=== PATIENT | male | born 1980 | race Caucasian/White ===

== ENCOUNTER 2016-03-18 13:31 | Emergency (ER) | payer SELFPAY ==
--- NOTE | 2016-03-18 15:23 | ER Document Report ---
Addendum entered and electronically signed by GABRIEL POSADA FNP 15:25: Discharge - Discharge Clinical Impression: Dog bite Disposition: HOME, SELF-CARE Additional Instructions: Dog bite. Soak affected area 4-5 times a day in warm water. Less follow-up with PMD for recheck in 24 hours. Return to the emergency room for any change or same condition. Prescriptions: Tramadol HCl [Ultram 50 mg Tablet] 50 mg PO Q6HP PRN #40 tablet PRN Reason: Amox Tr/Potassium Clavulanate [Augmentin 875-125 Tablet] 1 tab PO BID 10 Days Forms: Smoking Cessation Education Original Note: ED Animal Bite - General Chief Complaint: Dog Bite Stated Complaint: POSSIBLE DOG BITE Mode of Arrival: Ambulatory Information source: Patient TRAVEL OUTSIDE OF THE [place] IN LAST 30 DAYS: No - Related Data Allergies/Adverse Reactions: No Known Allergies Allergy (Verified 03/18/16 13:49) Past Medical History - General Information source: Patient - Social History Smoking Status: Current Every Day Smoker Cigarette use (# per day): Yes Lives with: Alone Family History: Arthritis, CAD, CVA, Hyperlipidemia, Hypertension, Malignancy Patient has suicidal ideation: No Patient has homicidal ideation: No Pulmonary Medical History: Reports: Hx Pneumonia Musculoskeltal Medical History: Reports Hx Musculoskeletal Deformity, Reports Hx Musculoskeletal Trauma - chronic back pain, herniated disc Traumatic Medical History: Reports: Hx Fractures - right arm 4 times - Immunizations Hx Diphtheria, Pertussis, Tetanus Vaccination: Yes - 2013 Review of Systems - Review of Systems Constitutional: No symptoms reported EENT: No symptoms reported Cardiovascular: No symptoms reported Respiratory: No symptoms reported Gastrointestinal: No symptoms reported Genitourinary: No symptoms reported Male Genitourinary: No symptoms reported Musculoskeletal: No symptoms reported Skin: Other - Dog bite right hand no bleeding at this point in time abrasion to anterior aspect of proximal hand. Also dog bite to right lateral thigh abrasion in nature no puncture wound noted no bleeding at this point in time. Hematologic/Lymphatic: Other - Dog bite right hand no bleeding at this point in time abrasion to anterior aspect of proximal hand. Also dog bite to right lateral thigh abrasion in nature no puncture wound noted no bleeding at this point in time. Neurological/Psychological: No symptoms reported Physical Exam - Vital signs Vitals: Temp Pulse Resp BP Pulse Ox 98.4 F 81 20 125/96 H 100 03/18/16 13:45 03/18/16 13:45 03/18/16 13:45 03/18/16 13:45 03/18/16 13:45 Interpretation: Normal - General General appearance: Appears well, Alert - HEENT Head: Normocephalic, Atraumatic Eyes: Normal Pupils: PERRL - Respiratory Respiratory status: No respiratory distress Chest status: Nontender Breath sounds: Normal Chest palpation: Normal - Cardiovascular Rhythm: Regular Heart sounds: Normal auscultation Murmur: No - Abdominal Inspection: Normal Distension: No distension Bowel sounds: Normal Tenderness: Nontender Organomegaly: No organomegaly - Back Back: Normal, Nontender - Extremities General upper extremity: Normal inspection, Nontender, Normal color, Normal ROM , Normal temperature General lower extremity: Normal inspection, Nontender, Normal color, Normal ROM , Normal temperature, Normal weight bearing. No: Codie's sign - Neurological Neuro grossly intact: Yes Cognition: Normal Orientation: AAOx4 Wilbur Coma Scale Eye Opening: Spontaneous Sun Coma Scale Verbal: Oriented Wilbur Coma Scale Motor: Obeys Commands Wilbur Coma Scale Total: 15 Speech: Normal Motor strength normal: LUE, RUE, LLE, RLE Sensory: Normal - Psychological Associated symptoms: Normal affect, Normal mood - Skin Skin Temperature: Warm Skin Moisture: Dry Skin Color: Normal Irregularity with: Other - Dog bite right hand no bleeding at this point in time abrasion to anterior aspect of proximal hand. Also dog bite to right lateral thigh abrasion in nature no puncture wound noted no bleeding at this point in time. Course - Vital Signs Vital signs: Temp Pulse Resp BP Pulse Ox 98.4 F 81 20 125/96 H 100 03/18/16 13:45 03/18/16 13:45 03/18/16 13:45 03/18/16 13:45 03/18/16 13:45 Discharge - Discharge Clinical Impression: Dog bite Disposition: HOME, SELF-CARE Additional Instructions: Dog bite. Soak affected area 4-5 times a day in warm water. Less follow-up with PMD for recheck in 24 hours. Return to the emergency room for any change or same condition. Prescriptions: Tramadol HCl [Ultram 50 mg Tablet] 50 mg PO Q6HP PRN #40 tablet PRN Reason: Amox Tr/Potassium Clavulanate [Augmentin 875-125 Tablet] 1 tab PO BID 10 Days Forms: Smoking Cessation Education
[2016-03-18 15:41] VITALS: BP 146/96
== END 2016-03-18 15:40 | disposition home or self-care (01) ==
LOC: ER 13:31
DX: S61.451A Open bite of right hand, initial encounter (principal); W54.0XXA Bitten by dog, initial encounter
CPT/HCPCS: 99283

== ENCOUNTER 2016-12-15 04:27 | Emergency (ER) | payer MEDICAID ==
[2016-12-15 04:34] VITALS: BP 142/94
--- NOTE | 2016-12-15 05:05 | ER Document Report ---
HPI - HPI Patient complains to provider of: Dental abscess Onset: Other - Several days Onset/Duration: Gradual Pain Level: 4 Context: 36-year-old male complaining of dental abscess with swelling for several days. No fever. Associated Symptoms: None Exacerbated by: Denies Relieved by: Denies Similar symptoms previously: No Recently seen / treated by doctor: No - ROS ROS below otherwise negative: Yes Systems Reviewed and Negative: Yes All other systems reviewed and negative - REPRODUCTIVE Reproductive: DENIES: : - DERM Skin Color: Normal Past Medical History - General Information source: Patient - Social History Smoking Status: Current Every Day Smoker Chew tobacco use (# tins/day): No Frequency of alcohol use: None Drug Abuse: None Lives with: Family Family History: Arthritis, CAD, CVA, Hyperlipidemia, Hypertension, Malignancy Patient has suicidal ideation: No Patient has homicidal ideation: No Pulmonary Medical History: Reports: Hx Pneumonia Renal/ Medical History: Denies: Hx Peritoneal Dialysis Musculoskeltal Medical History: Reports Hx Musculoskeletal Deformity, Reports Hx Musculoskeletal Trauma - chronic back pain, herniated disc Traumatic Medical History: Reports: Hx Fractures - right arm 4 times Surgical Hx: Negative - Immunizations Hx Diphtheria, Pertussis, Tetanus Vaccination: Yes - 2013 Vertical Provider Document - CONSTITUTIONAL Agree With Documented VS: Yes Exam Limitations: No Limitations General Appearance: No Apparent Distress - INFECTION CONTROL TRAVEL OUTSIDE OF THE [place] IN LAST 30 DAYS: No - HEENT HEENT: Normocephalic Notes: tender abscess with facial swelling right upper biscupids with decay - NECK Neck: Supple. negative: Lymphadenopathy-Left, Lymphadenopathy-Right - RESPIRATORY Respiratory: Breath Sounds Normal, No Respiratory Distress O2 Sat by Pulse Oximetry: 99 - CARDIOVASCULAR Cardiovascular: Regular Rate, Regular Rhythm - NEURO Level of Consciousness: Awake, Alert - DERM Integumentary: Warm, Dry Course - Re-evaluation Re-evalutation: 12/15/16 05:15 pt does not want IV antibiotics that are offered - Vital Signs Vital signs: Temp Pulse Resp BP Pulse Ox 99.1 F 84 18 142/94 H 99 12/15/16 04:32 12/15/16 04:32 12/15/16 04:33 12/15/16 04:32 12/15/16 04:32 Discharge - Discharge Clinical Impression: right upper dental abscess Condition: Good Disposition: HOME, SELF-CARE Instructions: Anti-Inflammatory Medication ([facility]), Dentist, Penicillin V K ([facility]) , Toothache ([facility]) Additional Instructions: warm compress take the antibiotics see the dentist return to er if worse Please complete the patient satisfaction survey if you get one, and return it.. If you do not receive a survey, then you can go to the [facility] website, [email or web address] and place your comments about your very good care. Thank you very much. It was a pleasure being your medical provider today. Prescriptions: Ibuprofen [Motrin 800 mg Tablet] 800 mg PO Q8HP PRN #30 tablet PRN Reason: Penicillin V Potassium [Penicillin Vk 500 mg Tablet] 500 mg PO QID #40 tablet Forms: Return to Work
[2016-12-15] MEDS ORDERED: PENICILLIN V POTASSIUM 500 MG TABLET PO ONE (05:11)
[2016-12-15] MEDS ORDERED: ONDANSETRON 4 MG TAB.RAPDIS PO ONE (05:12)
[2016-12-15] MEDS ORDERED: IBUPROFEN 800 MG TABLET PO ONE (05:15)
== END 2016-12-15 05:45 | disposition home or self-care (01) ==
LOC: ER 04:27
DX: K04.7 Periapical abscess without sinus (principal); F17.200 Nicotine dependence, unspecified, uncomplicated
CPT/HCPCS: 99282; J3490 ×2; S0119

== ENCOUNTER 2017-12-05 08:45 | Emergency (ER) | payer MEDICAID ==
[2017-12-05 08:56] VITALS: BP 147/97
--- NOTE | 2017-12-05 09:03 | ER Document Report ---
HPI - HPI Patient complains to provider of: Lower left toothache Onset: Other - 3 days Onset/Duration: Gradual Quality of pain: Throbbing Pain Level: 4 Context: 37-year-old male complaining of lower left second molar decay and pain throbbing for 3 days it wakes him up at night. He thinks he needs antibiotics. His looked at it this morning and thought it looked swollen. He does not taste any pus. Associated Symptoms: None Exacerbated by: Denies Relieved by: Denies Similar symptoms previously: Yes Recently seen / treated by doctor: No - ROS ROS below otherwise negative: Yes Systems Reviewed and Negative: Yes All other systems reviewed and negative - REPRODUCTIVE Reproductive: DENIES: : Past Medical History - General Information source: Patient - Social History Smoking Status: Unknown if Ever Smoked Lives with: Spouse/Significant other Family History: Arthritis, CAD, CVA, Hyperlipidemia, Hypertension, Malignancy Pulmonary Medical History: Reports: Hx Pneumonia Renal/ Medical History: Denies: Hx Peritoneal Dialysis Musculoskeletal Medical History: Reports Hx Musculoskeletal Deformity, Reports Hx Musculoskeletal Trauma - chronic back pain, herniated disc Traumatic Medical History: Reports: Hx Fractures - right arm 4 times Surgical Hx: Negative - Immunizations Hx Diphtheria, Pertussis, Tetanus Vaccination: Yes - 2013 Vertical Provider Document - CONSTITUTIONAL Agree With Documented VS: Yes Exam Limitations: No Limitations General Appearance: No Apparent Distress - INFECTION CONTROL TRAVEL OUTSIDE OF THE [place] IN LAST 30 DAYS: No - HEENT Notes: Decay with gingival inflammation second lower left molar - NECK Neck: Supple. negative: Lymphadenopathy-Left, Lymphadenopathy-Right - NEURO Level of Consciousness: Awake Course - Vital Signs Vital signs: Temp Pulse Resp BP Pulse Ox 97.5 F 70 16 147/97 H 100 12/05/17 08:55 12/05/17 08:55 12/05/17 08:55 12/05/17 08:55 12/05/17 08:55 Discharge - Discharge Clinical Impression: Dental pain and decay Condition: Good Disposition: HOME, SELF-CARE Instructions: Penicillin V K ([facility]), Toothache ([facility]), Acetaminophen, Ibuprofen ( General) (OM), Topical Lidocaine ([facility]), Dentist Additional Instructions: See the dentist Motrin 600 mg 3 times a day for pain and inflammation Tylenol up to 4000 mg a day for pain Lidocaine to numb the area Warm compress Return to the emergency room any concerns Prescriptions: Ibuprofen [Motrin 600 mg Tablet] 600 mg PO Q8HP PRN #30 tablet PRN Reason: Penicillin V Potassium [Penicillin Vk 500 mg Tablet] 500 mg PO QID #40 tablet
[2017-12-05] MEDS ORDERED: IBUPROFEN 600 MG TABLET PO ONE (09:05)
[2017-12-05] MEDS ORDERED: ACETAMINOPHEN 325 MG TABLET PO ONE (09:05)
[2017-12-05] MEDS ORDERED: LIDOCAINE 2% VISCOUS SOLN 20 ML UDCUP PO ONE (09:05)
== END 2017-12-05 09:24 | disposition home or self-care (01) ==
LOC: ER 08:45
DX: K02.9 Dental caries, unspecified (principal); K05.10 Chronic gingivitis, plaque induced; K08.89 Other specified disorders of teeth and supporting structures
CPT/HCPCS: 99282; J3490 ×3

== ENCOUNTER 2017-12-15 08:53 | Emergency (ER) | payer OTHER, MEDICAID ==
[2017-12-15] MEDS ORDERED: OXYCODONE-ACETAMINOPHEN 5-325 MG TABLET PO ONE (09:23)
[2017-12-15] MEDS ORDERED: PROMETHAZINE HCL 25 MG TABLET PO ONE (09:23)
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
[2017-12-15 11:07] LABS: APPEARANCE,URINE CLEAR; BILIRUBIN,URINE NEGATIVE (NEGATIVE); COLOR,URINE YELLOW; GLUCOSE, URINE NEGATIVE (NEGATIVE); KETONES,URINE NEGATIVE (NEGATIVE); LEUKOCYTE ESTERASE,URINE NEGATIVE (NEGATIVE); NITRITE,URINE NEGATIVE (NEGATIVE); PROTEIN,URINE NEGATIVE (NEGATIVE); URINE SPECIFIC GRAVITY 1.009; UROBILINOGEN,URINE NEGATIVE mg/dL (<2.0)
[2017-12-15] MEDS ORDERED: MORPHINE SULFATE 10 MG/ML INJ IM ONE (11:33)
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
[2017-12-15 13:00] VITALS: BP 112/66
== END 2017-12-15 13:03 | disposition home or self-care (01) ==
LOC: ER 08:53
DX: S50.812A Abrasion of left forearm, initial encounter (principal); S70.312A Abrasion, left thigh, initial encounter; S70.212A Abrasion, left hip, initial encounter; S80.212A Abrasion, left knee, initial encounter; S90.812A Abrasion, left foot, initial encounter; M54.9 Dorsalgia, unspecified; R51 Headache; V29.40XA Motorcycle driver injured in collision with unspecified motor vehicles in traffic accident, initial encounter; Y92.410 Unspecified street and highway as the place of occurrence of the external cause; F17.200 Nicotine dependence, unspecified, uncomplicated
CPT/HCPCS: 99284; 96372; 81001; 71046; 73080; 73564; 72110; 73522; 70450; J2270